=== PATIENT | female | born 1995 | race African-American/Black ===

== ENCOUNTER 2021-10-11 20:51 | Emergency (ER) | payer SELFPAY ==
[~2021-10-11] VITALS: Ht 165.1 cm; Wt 76.2 kg
[2021-10-11 21:05] VITALS: BP 140/90
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
[2021-10-11] MEDS ORDERED: TETANUS,DIPTH,PERTUSS P/F (BOOSTRIX) 0.5 ML VIAL IM ONE (21:30)
[2021-10-11] MEDS ORDERED: LIDOCAINE 1% INJ 20 ML VIAL INJ ONE (21:30)
[2021-10-11] MEDS ORDERED: LIDOCAINE 1% INJ 50 ML (XYLOCAINE) VIAL ONE (21:35)
--- NOTE | 2021-10-11 23:19 | Diagnostic Imaging Report ---
Indication: Right foot pain AP, oblique and lateral views of the right foot are obtained. FINDINGS: No acute fracture or dislocation is identified. No abnormal lytic or sclerotic focus is seen, and there is no radiopaque foreign body. IMPRESSION: No acute abnormality. Dictated by: Dictated on workstation # [id number]
== END 2021-10-11 22:38 | disposition home or self-care (01) ==
LOC: ER 20:54
DX: S01.511A Laceration without foreign body of lip, initial encounter (principal); S01.81XA Laceration without foreign body of other part of head, initial encounter; M79.671 Pain in right foot; R40.2410 Glasgow coma scale score 13-15, unspecified time; F17.210 Nicotine dependence, cigarettes, uncomplicated; Z23 Encounter for immunization; Y04.2XXA Assault by strike against or bumped into by another person, initial encounter
CPT/HCPCS: 12051; 73630; 90715

== ENCOUNTER 2022-08-16 03:57 | Emergency (ER) | payer SELFPAY ==
[~2022-08-16] VITALS: Ht 165.1 cm; Wt 81.6 kg
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
[2022-08-16] MEDS ORDERED: KETOROLAC 60 MG/2 ML VIAL IM ONE (05:15)
[2022-08-16 06:17] VITALS: BP 114/72
== END 2022-08-16 06:17 | disposition home or self-care (01) ==
LOC: EDUNIT# 03:57 → ER 04:01
DX: K62.89 Other specified diseases of anus and rectum (principal); T74.21XA Adult sexual abuse, confirmed, initial encounter; F17.290 Nicotine dependence, other tobacco product, uncomplicated
CPT/HCPCS: 99284

== ENCOUNTER 2022-10-02 01:55 | Emergency (ER) | payer SELFPAY ==
[~2022-10-02] VITALS: Ht 165.1 cm; Wt 81.6 kg
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
[2022-10-02 03:55] VITALS: BP 148/92
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
== END 2022-10-02 03:55 | disposition home or self-care (01) ==
LOC: EDUNIT# 01:55 → ER 02:00
DX: S00.83XA Contusion of other part of head, initial encounter (principal); S60.032A Contusion of left middle finger without damage to nail, initial encounter; S60.031A Contusion of right middle finger without damage to nail, initial encounter; S60.042A Contusion of left ring finger without damage to nail, initial encounter; S60.041A Contusion of right ring finger without damage to nail, initial encounter; M54.2 Cervicalgia; F10.129 Alcohol abuse with intoxication, unspecified; Y90.9 Presence of alcohol in blood, level not specified; F17.290 Nicotine dependence, other tobacco product, uncomplicated; Z28.310 Unvaccinated for COVID-19; V23.41XA Electric (assisted) bicycle driver injured in collision with car, pick-up truck or van in traffic accident, initial encounter; Y93.55 Activity, bike riding; Y92.410 Unspecified street and highway as the place of occurrence of the external cause
CPT/HCPCS: 70450; 70486; 72125